=== PATIENT | male | born 2000 | race American Indian/Alaskan Native ===

== ENCOUNTER 2021-07-24 20:48 | Emergency (ER) | payer OTHER ==
[2021-07-24 21:57] VITALS: BP 117/44
[2021-07-24] MEDS ORDERED: IBUPROFEN 600 MG TAB PO ONE (22:17)
[2021-07-24] MEDS ORDERED: HYDROcodone/ACETAMINOPHEN 7.5-325MG TAB PO ONE (22:17)
[2021-07-24] MEDS ORDERED: ONDANSETRON 4 MG ODT TAB PO ONE (22:17)
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
== END 2021-07-25 01:05 | disposition home or self-care (01) ==
LOC: ED 20:48
DX: S22.080A Wedge compression fracture of T11-T12 vertebra, initial encounter for closed fracture (principal); S32.009A Unspecified fracture of unspecified lumbar vertebra, initial encounter for closed fracture; S20.219A Contusion of unspecified front wall of thorax, initial encounter; S43.401A Unspecified sprain of right shoulder joint, initial encounter; M62.838 Other muscle spasm; Z79.899 Other long term (current) drug therapy; V49.49XA Driver injured in collision with other motor vehicles in traffic accident, initial encounter; Y92.410 Unspecified street and highway as the place of occurrence of the external cause; Y93.89 Activity, other specified; Y99.8 Other external cause status
CPT/HCPCS: 70450; 71046; 72070; 72100; 72125; Q0162